=== PATIENT | female | born 1940 | race Caucasian/White ===

== ENCOUNTER → 2020-12-23 | Outpatient (CLI) | payer MEDICARE ==
--- NOTE | 2020-12-24 05:41 | MR ---
EXAMINATION TYPE: MR knee RT wo con DATE OF EXAM: 12/23/2020 COMPARISON: None HISTORY: Pain in right knee Multiplanar multiecho imaging of the right knee was performed without contrast. There is moderate size knee joint effusion. There is 7 mm degenerative cyst in the inferior patella. The anterior and posterior cruciate ligaments are intact. There are small areas of increased signal w ithin the anterior and posterior horns of the lateral meniscus. There is mild increased signal within the posterior horn medial meniscus. There is no evidence of a fracture. There is some thinning of the lateral collateral ligament. There is increased fluid signal in the ligament also. This is best seen on the proton density coronal image 20. The joint spaces are fairly normal. IMPRESSION: There is evidence of a tear of the lateral collateral ligament. There is fluid and edema on the later al aspect of the knee joint. Intrasubstance tears of the menisci as above. Knee joint effusion. No evidence of meniscal tear exten ding to the articular surface.
== END | disposition home or self-care (01) ==
LOC: RADMRIMAIN 08:22
PROVIDERS: ATTEND Orthopaedic Surgery
DX: M23.641 Other spontaneous disruption of lateral collateral ligament of right knee (principal)

== ENCOUNTER → 2021-04-05 | Outpatient (CLI) | payer MEDICARE, OTHER ==
[2021-04-05 15:08] LABS: Basophils # (A) 0.1 k/uL (0-0.2); Basophils % (A) 1 %; Eosinophils # (A) 0.1 k/uL (0-0.7); Eosinophils % (A) 2 %; HCT 39.8 % (34.0-46.0); HGB 13.7 gm/dL (11.4-16.0); Lymphocytes # (A) 1.2 k/uL (1.0-4.8); Lymphocytes % (A) 24 %; MCH 33.3 pg (25.0-35.0); MCHC 34.5 g/dL (31.0-37.0); MCV 96.7 fL (80.0-100.0); Mean Platelet Volume 7.7; Monocytes # (A) 0.4 k/uL (0-1.0); Monocytes % (A) 8 %; Neutrophils # (A) 3.1 k/uL (1.3-7.7); Neutrophils % (A) 62 %; Platelet Count 252 k/uL (150-450); RBC 4.11 m/uL (3.80-5.40); RDW 12.5 % (11.5-15.5); WBC 5.1 k/uL (3.8-10.6)
[2021-04-05 15:16] LABS: Potassium 4.2 mmol/L (3.5-5.1)
== END | disposition home or self-care (01) ==
LOC: LABPAT 14:37
PROVIDERS: ATTEND Orthopaedic Surgery
DX: Z01.818 Encounter for other preprocedural examination (principal); M23.91 Unspecified internal derangement of right knee; R94.31 Abnormal electrocardiogram [ECG] [EKG]
CPT/HCPCS: 80051; 85025; 93005

== ENCOUNTER 2021-04-12 08:38 | Day surgery (SDC) | payer MEDICARE, OTHER ==
[2021-04-10 15:53] VITALS: BMI 21.9
--- NOTE | 2021-04-11 19:02 | HP ---
HISTORY AND PHYSICAL DATE OF SURGERY: 04/12/2021 Isatu Griggs is an 80-year-old patient seen with progressive right knee pain, failing conservative treatment measures. We discussed options. She elected to proceed with arthroscopy. Consent was obtained. PAST MEDICAL HISTORY: Hypertension. PAST SURGICAL HISTORY: Elbow surgery. DAILY MEDICATIONS: Lisinopril, Tylenol. ALLERGIES: NONE KNOWN. SOCIAL HISTORY: She denies tobacco use. PHYSICAL EVALUATION OF THE RIGHT KNEE: Range of motion is negative 2/3 to 115. Mild effusion. Tenderness, medial joint line. Positive medial Lit's. Ligaments stable. Hip rotation without pain. Distal neurovascular exam intact. IMAGING: Right knee radiographs revealed some kept chondrocalcinosis of the medial compartment and lateral compartment. Mild osteoarthritic changes. Right knee MRI revealed moderate effusion, intrasubstance meniscal tear. IMPRESSION: 1. Internal derangement of right knee with medial meniscal tear. 2. Hypertension. PLAN: Right knee arthroscopy with partial meniscectomy and debridement. MMODL / IJN: [id number] /
[~2021-04-12 08:38] MED LIST: LACTATED RINGERS 1,000 ML IV SCH; LIDOCAINE 1% (10MG/ML) FOR IV START INTRADERMA PRN; ONDANSETRON 4 MG/2 ML VIAL IVP ONE
[2021-04-12] MEDS ORDERED: DEXAMETHASONE SOD PHOSPHATE 4 MG/ML 1 ML VIAL IVP ONE (09:11)
[2021-04-12] MEDS ORDERED: GLYCOPYRROLATE 0.2 MG/ML 2 ML VIAL ONE (09:52)
[2021-04-12] MEDS ORDERED: PROPOFOL 10 MG/ML 20 ML VIAL IV ONE (09:52)
[2021-04-12] MEDS ORDERED: fentaNYL (PF) 50 MCG/ML 2 ML AMP ONE (09:52)
[2021-04-12] MEDS ORDERED: LIDOCAINE 1% INJ 10MG/ML (20 ML MDV) ONE (09:52)
[2021-04-12] MEDS ORDERED: BUPIVACAINE (PF) 0.25% 30 ML VIAL INTRAARTIC ONE (10:20)
--- NOTE | 2021-04-12 10:54 | P.OP ---
Date of Procedure: 04/12/21 Preoperative Diagnosis: Internal derangement right knee Postoperative Diagnosis: 1. Tear lateral meniscus right knee 2. Reactive synovitis medial, lateral and suprapatellar compartments right knee Procedure(s) Performed: 1. Arthroscopic partial lateral meniscectomy right knee 2. Arthroscopic partial synovectomy medial, lateral and suprapatellar compartments right knee Anesthesia: ALLEGRA, local Surgeon: Tutu Alcazar Estimated Blood Loss (ml): 7 Pathology: none sent Condition: stable Disposition: PACU Indications for Procedure: 80-year-old patient seen with progressive right knee pain. After treatment options were discussed, she elected to proceed with arthroscopy. Operative Findings: See description of procedure Description of Procedure: Patient was taken to the operative suite. Patient underwent a general anesthetic by the department of anesthesia. Patient was given preoperative antibiotics. The right lower extremity was placed in a well-padded arthroscopic leg hwang. The right leg was prepped and draped in the normal sterile orthopedic fashion. A lateral parapatellar and suprapatellar incision was made. Trochars were inserted. Arthroscopy was initiated. Suprapatellar pouch revealed diffuse thick reactive synovitis. The patellofemoral joint appeared to articulate congruently. There was grade 2 chondromalacia the patella with no osteochondral tears present. The scope was guided into the medial gutter. No loose bodies or plica were identified. The scope was then guided into the medial compartment. A medial parapatellar incision was made. Trocar inserted followed by probe. There was some fraying of the posterior horn medial meniscus. There was diffuse chondrocalcinosis throughout the medial compartment. The remainder of the meniscus was stable. There were grade 2 chondromalacia changes but no osteochondral tears. There was thick reactive synovitis anteriorly. I introduced a motorized shaver and debrided that superficial fraying of the meniscus and then I performed a partial synovectomy decompressing the reactive synovitis. Shaver was removed. There was good decompression of the synovitis. Scope and probe were then guided into the intercondylar notch. Cruciates were identified, probed and found to be stable. The scope and probe were then guided into lateral compartment. There was a complex tear of the lateral meniscus involving the mid body and posterior horns. There was diffuse chondrocalcinosis changes throughout the lateral compartment. There were grade 1/2 chondral malacia changes of lateral compartment with no osteochondral tears. There was thick reactive synovitis anteriorly. I performed a partial lateral meniscectomy getting down to stable meniscal tissue. I performed a partial synovectomy decompressing reactive synovitis. The res idual meniscus was stable. There was good decompression of synovitis. The scope was in guided back into the suprapatellar compartment. I introduced a motorized shaver into the suprapatellar compartment. I debrided piecemeal fragments of meniscus I encountered. I performed a partial synovectomy. Shaver was removed. There was good decompression of the synovitis. Instruments were now removed from the joint. The joint was infiltrated with .25% Marcaine. Steri-Strips were applied to the portal sites. Sterile dressings were applied. The patient was placed into a TANVI hose. No tourniquet was utilized. The patient was awakened, transferred to a bed and taken to recovery stable satisfactory condition.
[2021-04-12 11:00] VITALS: TEMP 96.8
[2021-04-12] MEDS: fentaNYL (PF) 50 MCG/ML 2 ML AMP IV PRN ×3 (11:05→11:22)
[2021-04-12 11:29] VITALS: RESP 16
[2021-04-12 12:27] VITALS: PULSE 75
[2021-04-12 12:44] VITALS: BP 178/75
== END 2021-04-12 13:25 | disposition home or self-care (01) ==
LOC: OR 08:38
PROVIDERS: ATTEND Orthopaedic Surgery
DX: S83.281A Other tear of lateral meniscus, current injury, right knee, initial encounter (principal); S83.241A Other tear of medial meniscus, current injury, right knee, initial encounter; I10 Essential (primary) hypertension; Z79.899 Other long term (current) drug therapy
CPT/HCPCS: 29881; J1100; J2405; J0690; J2001; J3010; J2704

== ENCOUNTER → 2023-05-08 | Outpatient (CLI) | payer MEDICARE, OTHER ==
--- NOTE | 2023-05-08 23:32 | BD ---
EXAMINATION TYPE: Axial Bone Density DATE OF EXAM: 05/08/2023 CLINICAL HISTORY: 82 years old Female. ICD-10 CODE: M89.9 DISORDER OF BONE Height: 63 in Weight: 131 lbs FRAX RISK QUESTIONS: History of Fracture in Adulthood: rt elbow fx age 70 RISK FACTORS HISTORY OF: Active: yes Postmenopausal woman: age 46 Take estrogen and/or progesterone medications: not now How long: took control for 20 years MEDICATIONS: Additional Medications: blood pressure meds, vit d EXAM MEASUREMENTS: Bone mineral densitometry was performed using the [employer] System. Bone mineral density as measured about the Lumbar spine is: ----- L1-L4(G/cm2): 1.225 T Score Values are as follows: ----- L1: -0.6 ----- L2: 0.4 ----- L3: 1.0 ----- L4: 0.3 ----- L1-L4: 0.4 Z Score Values are as follows: ----- L1: 1.5 ----- L2: 2.5 ----- L3: 3.1 ----- L4: 2.4 ----- L1-L4: 2.5 Bone mineral density baseline Bone mineral density about the R hip (g/cm2): 0.831 Bone mineral density about the L hip (g/cm2): 0.876 T Score values are as follows: -----R Neck: -0.8 -----L Neck: -1.2 -----R Total: -1.4 -----L Total: -1.0 Z Score values are as follows: -----R Neck: 1.7 -----L Neck: 1.3 -----R Total: 1.0 -----L Total: 1.3 Bone mineral density baseline FRAX%s: The graph provided illustrates a 17.4% chance for a major osteoporotic fx and a 4.0% chance f or the hips probability for fx in 10 years time. IMPRESSION: Normal (Values between +1 and -1 indicate normal bone mass). Consider repeating this study in 5 year s or sooner if there is some new clinical indication. NOTE: T-SCORE=SD OF THE YOUNG ADULT MEAN.
== END | disposition home or self-care (01) ==
LOC: RADBDWWP 15:03
PROVIDERS: ATTEND Internal Medicine Geriatric Medicine
DX: Z13.820 Encounter for screening for osteoporosis (principal); M85.89 Other specified disorders of bone density and structure, multiple sites
CPT/HCPCS: 77080